=== PATIENT | female | born 1990 | race Caucasian/White ===

== ENCOUNTER 2021-08-14 14:12 | Outpatient (CLI) | payer OTHER, SELFPAY ==
--- NOTE | 2021-08-14 14:21 | MM_ITS ---
WS: [id number] DIAGNOSTIC BILATERAL DIGITAL MAMMOGRAM WITH CAD RIGHT breast ultrasound, limited HISTORY: BREAST LESION COMPARISON: None available. TECHNIQUE: Bilateral craniocaudad, mediolateral oblique, and mediolateral views are submitted. Spot c ompression RIGHT MLO. Computer aided detection utilized. Breast composition: The breasts are heterogeneously dense, which may obscure small masses. Triangular marker is placed along the 6:00 axis posterior RIGHT breast. No underlying abnormality is identified . No calcifications within either breast or distortion. RIGHT breast ultrasound, limited. No abnormality is noted in the RIGHT breast near the 6:00 axis posteriorly. MM/[place] [id number] IMPRESSION: BI-RADS: 1-Negative FOLLOW UP: 1 Year Follow-up
--- NOTE | 2021-08-14 14:56 | US_ITS ---
WS: [id number] DIAGNOSTIC BILATERAL DIGITAL MAMMOGRAM WITH CAD RIGHT breast ultrasound, limited HISTORY: BREAST LESION COMPARISON: None available. TECHNIQUE: Bilateral craniocaudad, mediolateral oblique, and mediolateral views are submitted. Spot c ompression RIGHT MLO. Computer aided detection utilized. Breast composition: The breasts are heterogeneously dense, which may obscure small masses. Triangular marker is placed along the 6:00 axis posterior RIGHT breast. No underlying abnormality is identified . No calcifications within either breast or distortion. RIGHT breast ultrasound, limited. No abnormality is noted in the RIGHT breast near the 6:00 axis posteriorly. US/US breast RT limited* [id number] IMPRESSION: BI-RADS: 1-Negative FOLLOW UP: 1 Year Follow-up
== END 2021-08-14 14:13 | disposition home or self-care (01) ==
PROVIDERS: PCP Family Medicine; Visit Provider Family Medicine
DX: N64.9 Disorder of breast, unspecified (principal)
CPT/HCPCS: 76642; 77066

== ENCOUNTER → 2023-06-20 09:01 | Outpatient (BNVA) | payer OTHER, SELFPAY | PROVIDERS: PCP Family Medicine; Visit Provider Family Medicine | DX: Z51.81 Encounter for therapeutic drug level monitoring (principal); O24.419 Gestational diabetes mellitus in pregnancy, unspecified control; Z13.1 Encounter for screening for diabetes mellitus; R53.81 Other malaise; R53.83 Other fatigue; Z3A.00 Weeks of gestation of pregnancy not specified | CPT/HCPCS: 80053; 83036; 84439; 84443; 85025 ==

== ENCOUNTER → 2023-07-09 12:00 | Outpatient (BNVA) | payer OTHER, SELFPAY | PROVIDERS: PCP Family Medicine; Visit Provider Family Medicine | DX: Z51.81 Encounter for therapeutic drug level monitoring (principal); R53.81 Other malaise; R53.83 Other fatigue; Z13.1 Encounter for screening for diabetes mellitus; Z13.220 Encounter for screening for lipoid disorders; Z01.419 Encounter for gynecological examination (general) (routine) without abnormal findings; N89.8 Other specified noninflammatory disorders of vagina; F32.A Depression, unspecified; Z80.8 Family history of malignant neoplasm of other organs or systems | CPT/HCPCS: 87491; 87591; 88175 ==

== ENCOUNTER → 2023-08-18 08:37 | Outpatient (BNVA) | payer OTHER, SELFPAY | PROVIDERS: PCP Family Medicine; Visit Provider Family Medicine | DX: Z51.81 Encounter for therapeutic drug level monitoring (principal); Z01.419 Encounter for gynecological examination (general) (routine) without abnormal findings; Z13.1 Encounter for screening for diabetes mellitus; Z13.220 Encounter for screening for lipoid disorders; R53.81 Other malaise; R53.83 Other fatigue; J30.2 Other seasonal allergic rhinitis | CPT/HCPCS: 80053; 80061; 83036; 84439; 84443; 85025 ==

== ENCOUNTER → 2023-08-19 11:30 | Outpatient (BNVA) | payer OTHER, SELFPAY | PROVIDERS: PCP Family Medicine; Visit Provider Family Medicine | DX: Z01.419 Encounter for gynecological examination (general) (routine) without abnormal findings (principal) | CPT/HCPCS: 88175 ==